=== PATIENT | male | born 1970 | race Caucasian/White ===

== ENCOUNTER 2017-07-13 13:25 | Emergency (ER) | payer SELFPAY ==
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
--- NOTE | 2017-07-13 14:55 | RAD ---
INDICATION: Trauma, right-sided jaw pain. COMPARISON: There are no prior studies available for comparison. TECHNIQUE: Contiguous axial sections of the axial images of the facial bones were obtained and reconstructed in the coronal and sagittal planes. FINDINGS: The borja of the orbits and maxillary sinuses appear intact. The zygomatic arches appear intact. There is no evidence for a fracture of the mandible. The nasal bones appear intact. There is moderate S-shaped deviation of the nasal septum which is convex toward the right along its anterior portion and toward the left along its posterior portion. The pterygoid plates appear intact. There is a small nodular area present along the lateral wall of the left maxillary sinus measuring 1.2 cm in size most consistent with a mucous retention cyst or polyp. There is minimal mucosal thickening present bilaterally within the maxillary sinuses. The paranasal sinuses and mastoid air cells otherwise appear clear. IMPRESSION: NO EVIDENCE OF FRACTURE.
--- NOTE | 2017-07-13 15:16 | RAD ---
INDICATION: 2. No evidence for fracture or subluxation. COMPARISON: There are no prior studies available for comparison. TECHNIQUE: Contiguous axial sections were obtained from the skull base through the T1 vertebra. Images were reconstructed in the sagittal and coronal planes. FINDINGS: The vertebra are in normal alignment. No prevertebral soft tissue swelling or fracture is seen. At the C2-C3 level there is mild posterior uncinate process spurring. No significant spinal canal narrowing is present. There is mild bilateral neural foraminal narrowing. At the C3-C4 level there is mild posterior uncinate process spurring associated with a small central disc protrusion. There is mild spinal canal narrowing and mild bilateral neural foraminal narrowing. At the C4-C5 level there is mild posterior uncinate process spurring. No significant spinal canal narrowing is present. There is mild neural foraminal narrowing on the left side. At C5-C6 level no significant spinal canal or neural foraminal narrowing is seen. At the C6-C7 level there is mild posterior uncinate process spurring. No significant spinal canal or neural foraminal narrowing is seen. IMPRESSION: 1. NO EVIDENCE FOR FRACTURE OR SUBLUXATION. 2. MILD CERVICAL SPONDYLOSIS.
== END 2017-07-13 15:50 | disposition home or self-care (01) ==
LOC: UCEAST 13:25
DX: R68.84 Jaw pain (principal); M54.2 Cervicalgia
CPT/HCPCS: 70486; 72125; 99212; G0463

== ENCOUNTER 2019-07-10 08:10 | Observation (INO) | payer BC ==
--- NOTE | 2019-07-10 08:28 | ED ---
HPI Chest Pain - HPI Summary HPI Summary: This pt is a 49 y/o male presenting to [facility] c/o gradual onset of chest pain at 0700 today. Pt reports he was heading to work this morning when he began to feel chest pain. He works as a teacher in a school. He describes chest pain as radiating to bilateral neck and with left arm "twitching." He states he began to sweat profusely at the time during onset of his pain. Pt also notes SOB "feeling restricted" and nausea. Denies abd pain. Currently pt notes his chest pain is less in severity now and his breathing is "ok" but feels more laborious to fill his lungs. Pt reports he has felt chest pain in the past and notes today his chest pain is similar to prior episodes but is more severe today. He states a milder episode of chest pain happened right high school mathematics teacher began, but believes it might have been secondary to anxiety although he does not have hx of anxiety or treatment for anxiety. He admits to smoking cigarettes once in a while (a "few packs this year") and occasional marijuana. Denies cocaine or heroin use. PMHx chronic pain after T7 injury for which he uses marijuana for the pain, hypercholesterolemia (not currently being treated). Pt reports he was in a car 6 hours yesterday roundtrip but also went hiking. He denies any chest pain or SOB while he was hiking, but reports he had acute on chronic back pain. Denies hx of HTN, DM, cardiac hx, respiratory hx. He denies FHx of ID at a young age. Allergic to Hepatitis B vaccine. - History of Current Complaint Chief Complaint: EDChestPainROMI Time Seen by Provider: 07/10/19 08:16 Hx Obtained From: Patient Onset/Duration: Started Hours Ago, Still Present Timing: Lasting Hours Current Severity: Moderate Pain Intensity: 6 Pain Scale Used: 0-10 Numeric Chest Pain Location: Mid Sternal Chest Pain Radiates: Yes Chest Pain Radiates To:: Neck - bilateral Aggravating Factor(s): Nothing Alleviating Factor(s): Nothing Associated Signs and Symptoms: Positive: Chest Pain, Shortness of Breath, Diaphoresis, Nausea. Negative: Fever, Abdominal Pain - Allergy/Home Medications Allergies/Adverse Reactions: Allergies Allergy/AdvReac Type Severity Reaction Status Date / Time hepatitis B virus vaccine Allergy Fever Verified 07/10/19 09:42 Home Medications: Home Medications NK [No Home Medications Reported] 07/10/19 [History Confirmed 07/10/19] PMH/Surg Hx/FS Hx/Imm Hx Endocrine/Hematology History: Denies: Hx Diabetes, Hx Thyroid Disease Cardiovascular History: Reports: Hx Hypercholesterolemia Denies: Hx Hypertension Respiratory History: Denies: Hx Chronic Obstructive Pulmonary Disease (COPD) Infectious Disease History: No Infectious Disease History: Denies: Hx Hepatitis, History Other Infectious Disease, Traveled Outside the [place] in Last 30 Days - Family History Known Family History: Negative: Cardiac Disease - Denies ID at a young age - Social History Alcohol Use: Occasionally Substance Use Type: Reports: Marijuana Smoking Status (MU): Current Some Day Smoker Review of Systems Positive: Skin Diaphoresis. Negative: Fever Positive: Chest Pain Positive: Shortness Of Breath Positive: Nausea. Negative: Abdominal Pain All Other Systems Reviewed And Are Negative: Yes Physical Exam - Summary Physical Exam Summary: Constitutional: Well-developed, Obese, Alert. (-) Distressed Skin: Warm, Dry HENT: Normocephalic; Atraumatic Eyes: Conjunctiva normal Neck: Musculoskeletal ROM normal neck. (-) JVD, (-) Stridor, (-) Tracheal deviation Cardio: Rhythm regular, rate normal, Heart sounds normal; Intact distal pulses; The pedal pulses are 2+ and symmetric. Radial pulses are 2+ and symmetric. Pulmonary/Chest wall: Effort normal. (-) Respiratory distress, (-) Wheezes, (-) Rales Abd: Soft, (-) tenderness, (-) Distension, (-) Guarding, (-) Rebound Musculoskeletal: (-) Edema Neuro: Alert, Oriented x3 Psych: Mood and affect Normal Triage Information Reviewed: Yes Vital Signs On Initial Exam: Initial Vitals Temp Pulse Resp BP Pulse Ox 96.6 F 62 18 121/63 96 07/10/19 08:18 07/10/19 08:18 07/10/19 08:18 07/10/19 08:18 07/10/19 08:18 Vital Signs Reviewed: Yes Procedures - Sedation Patient Received Moderate/Deep Sedation with Procedure: No Diagnostics - Vital Signs Vital Signs Temp Pulse Resp BP Pulse Ox 07/10/19 08:18 96.6 F 62 18 121/63 96 - Laboratory Result Diagrams: 07/10/19 08:20 07/10/19 08:20 Lab Statement: Any lab studies that have been ordered have been reviewed, and results considered in the medical decision making process. - Radiology Chest XR Radiology Interpretation Completed By: ED Physician Summary of Radiographic Findings: Normal XR. Suboptimal because inspiratory film but no consolidation. - EKG 08:11 Cardiac Rate: Bradycardia - at 57 bpm EKG Rhythm: Sinus Bradycardia EKG Comparison: Other - No prior. Summary of EKG Findings: An EKG at 08:11 reveals sinus bradycardia at 57 bpm, No STEMI. Inferior Q-waves. No prior for comparison. Re-Evaluation - Re-Evaluation First Eval Re-Evaluation Time: 10:08 Comment: Work up for chest pain is negative. HEART score is 5. Pt was offered admission and he agrees to admission. Chest Pain Course/Dx - Course Assessment/Plan: Pt is a 49 y/o male, hx of hypercholesterolemia, presenting to [facility] c/o gradual onset of chest pain at 0700 today. Pt reports he was heading to work this morning when he began to feel chest pain. He describes chest pain as radiating to bilateral neck and with left arm "twitching." He states he began to sweat profusely at the time during onset of his pain. Pt also notes SOB "feeling restricted" and nausea. Hx of smoking cigarettes and marijuana use. Chest XR shows normal XR. Suboptimal because inspiratory film but no consolidation. An EKG at 08:11 reveals sinus bradycardia at 57 bpm, No STEMI. Inferior Q-waves. No prior EKG for comparison. In the ED course pt received aspirin. Work up for chest pain is negative but HEART score of 5. Risk factors include obesity, hx of hypercholesterolemia, drug and tobacco use, EKG changes. Discussed pt's case with Dr. Singh, hospitalist, who accepted the pt for admission. Pt agrees with admission. - Diagnoses Provider Diagnoses: Chest pain - Provider Notifications Discussed Care Of Patient With: Mariana Singh - hospitalist Time Discussed With Above Provider: 10:13 Instructed by Provider To: Admit As Inpatient Discharge ED - Sign-Out/Discharge Documenting (check all that apply): Patient Departure - Admit to [facility] Patient Received Moderate/Deep Sedation with Procedure: No - Discharge Plan Condition: Stable Disposition: ADMITTED TO [facility] - Billing Disposition and Condition Condition: STABLE Disposition: Admitted to [facility] - Attestation Statements Document Initiated by Scribe: Yes Documenting Scribe: Noelle Pradhan Provider For Whom Ryanibe is Documenting (Include Credential): Amadeo Srinivasan MD Scribe Attestation: I, Noelle Pradhan, scribed for Amadeo Srinivasan MD on 07/10/19 at 1907. Scribe Documentation Reviewed: Yes Provider Attestation: The documentation as recorded by the jesuseNoelle accurately reflects the service I personally performed and the decisions made by me, Amadeo Srinivasan MD Status of Scribe Document: Viewed
[2019-07-10 08:29] LABS: ABS Eosinophils 0.2 10^3/ul (0-0.6); ABS Lymphocytes 1.2 10^3/ul (1.0-4.8); ABS Monocytes 0.6 10^3/ul (0-0.8); ABS Neutrophils 3.3 10^3/ul (1.5-7.7); Eosinophil % 3.1 %; Hematocrit 41 % (42-52); Lymphocyte % 22.1 %; Mean Corpuscular HGB Conc 34 g/dL (31-36); Mean Corpuscular Hemoglobin 29 pg (27-31); Mean Corpuscular Volume 85 fL (80-94); Mean Platelet Volume 7.4 fL (7.4-10.4); Platelet Count 236 10^3/uL (150-450); Red Blood Count 4.79 10^6 /uL (4.18-5.48); Red Cell Distribution Width 14 % (10-15); White Blood Count 5.2 10^3/uL (3.5-10.8)
[2019-07-10 08:35] LABS: INR 0.93 (0.82-1.09)
[2019-07-10] MEDS ORDERED: Aspirin 81 mg CHEW TAB* 81 MG TAB.CHEW PO ONE (08:41)
[2019-07-10 08:46] LABS: Albumin 3.9 g/dL (3.2-5.2); Albumin/Globulin Ratio 1.4 (1-3); BUN/Creatinine Ratio 22.4 (8-20); Calcium 8.9 mg/dL (8.6-10.3); EGFR Non-African American 109.9 (>60); Globulin 2.7 g/dL (2-4); Potassium 3.8 mmol/L (3.5-5.0); Total Bilirubin 0.4 mg/dL (0.2-1.0); Total Protein 6.6 g/dL (6.4-8.9)
[2019-07-10] MEDS ORDERED: Nitroglycerin TAB 0.4 MG* 0.4 MG TAB SL PRN (11:50)
[2019-07-10] MEDS ORDERED: Morphine INJ* 2 MG/ML 1 ML SYRINGE (TWO MG - NEW SYRINGE VERSION) IV PRN (11:52)
[2019-07-10] MEDS ORDERED: Ondansetron INJ* 2 MG/ML VIAL IV PRN (12:03)
[2019-07-10] MEDS ORDERED: Acetaminophen TAB* 325 MG PO PRN (12:03)
[2019-07-10 12:19] LABS: HDL Cholesterol 44.2 mg/dL
--- NOTE | 2019-07-10 13:53 | HP ---
CC: Dr. Oliveros * DATE OF ADMISSION: 07/10/2019. PRIMARY CARE PHYSICIAN: Dr. Oliveros. CHIEF COMPLAINT: Chest pain. HISTORY OF PRESENT ILLNESS: Mr. Trotter is a 49-year-old male who has a history of chronic back pain and hypercholesterolemia, currently not under treatment who was on his way to work via the [employer] bus when he began to develop severe chest tightness. The patient states that this was approximately 7:00 a.m. He describes the chest pain as being a both tight and pressure-like sensation. He states it felt as is somebody was sitting on his chest. There was also a component of burning in the chest. He states that the patient radiated up into his neck. He states he felt very uncomfortable and almost restless in nature. He then began to develop very profuse sweating. He, in fact, moved seats so that he could be next to the window and get some air on him. 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 The patient also noted that there was a metallic taste in his mouth prior to getting off the bus. The patient states that he had a terrible nights sleep last night. He did state that he felt more anxious on the morning of presentation than he typically does. His also noted that he was more anxious, but states that this will happen from time to time. The patient states that he has never had pain in the chest this bad before. He does tell me that he has had intermittent episodes of chest discomfort similar to this in the past, but it has been much less severe. He describes his pain as being present from greater than one hour, though, in fact, he tells me that the pain is still present at this point, though much less severe than it was at its maximum. The patient denies any history of DVT or PE. He denies any history of lower extremity swelling. He was in the car for [id number] hours this past Tuesday riding out to [place] [facility]. The patient denies any significant shortness of breath, though he does state that it felt somewhat difficult to breath while the pain was at its most severe. PAST MEDICAL HISTORY: Chronic back pain. PAST SURGICAL HISTORY: Ganglion cyst removal of the right foot times two. MEDICATIONS: Medical marijuana. ALLERGIES: HEPATITIS B VACCINE. FAMILY HISTORY: Mom is living, she is 79 and healthy. Dad at the age of 88 from assisted suicide. SOCIAL HISTORY: The patient smokes approximately three cigarettes per day. He has smoked off and on for years, at times more than others. He drinks a few alcoholic beverages weekly. He is an parts washer. He is . He has three biological children and one adopted child. His will be his healthcare proxy. REVIEW OF SYSTEMS: A complete 11 system review of systems was obtained. Pertinent positives and negatives are as HPI and otherwise negative. PHYSICAL EXAMINATION GENERAL: The patient is a well-developed, obese, middle-aged male sitting in a stretcher, appearing to be somewhat uncomfortable, but in no acute distress. VITAL SIGNS: Blood pressure 121/77, pulse 49, respirations 13, temperature 96.6 , O2 sat 95 percent on room air. HEENT: Pupils are equal and round. Extraocular muscles are intact. Oropharynx is clear. Oral mucosa is moist. There is no submandibular, cervical , or supraclavicular adenopathy. Thyroid is not enlarged. No thyroid nodules are noted. CARDIAC: Normal S1, S2. Regular rate and rhythm. I do not appreciate any murmurs. There is trace bilateral lower extremity pitting edema. PULMONARY: Lungs are clear to auscultation bilaterally. ABDOMEN: Bowel sounds are present. Abdomen is soft, nontender, nondistended. MUSCULOSKELETAL: There is no cyanosis or clubbing of the digits. There is full active range of motion of all four extremities. SKIN: Warm and dry. There are no rashes. NEUROLOGIC: Cranial nerves II through XII are grossly intact. Sensation is intact to light touch throughout. Strength is 5/5 and symmetric in both upper and lower extremities bilaterally. PSYCH: The patient is alert. He is oriented times three. Affect appears appropriate. LABORATORY DATA/DIAGNOSTIC STUDIES: WBC 5.2, hemoglobin 14.0, hematocrit 41, platelets 236; INR 0.93; sodium 138, potassium 3.8, chloride 107, CO2 26, BUN 17 , creatinine 0.76, glucose 133, calcium 8,9, bilirubin 0.4, AST 20, ALT 29, alk phos 121, troponin 0, albumin 3.9. Chest x-ray: No acute cardiopulmonary disease process by radiograph. EKG reveals sinus bradycardia with slight ST elevation in the inferior leads, possibly consistent with early repolarization. ASSESSMENT AND PLAN: Mr. Trotter is a 49-year-old male with a history of possible hypercholesterolemia who presented to the emergency room with sudden onset of severe chest tightness and pressure with associated diaphoresis, nausea , and shortness of breath. 1. Chest pain: The patient will be admitted to rule out acute coronary syndrome. I am very concerned about his story though, he was at rest while this occurred. I reviewed with both the patient and his possible differential diagnosis which could include pulmonary embolism, a GI source, a musculoskeletal source. The patient is agreeable to being admitted under observation status to be ruled out for an acute coronary syndrome and undergo exercise nuclear stress test tomorrow. The patient has been instructed that he should inform nursing staff if there are any changes in his symptoms. I am going to have nitroglycerin administered to see if it makes a difference in his discomfort. He will also have prn Morphine available for pain. I have added a D-dimer to labs obtained in the ER. 2. Hypercholesterolemia: I have added on a lipid profile. We will await results of this. 3. Chronic back pain: The patient will not be allowed to utilize his medical marijuana while hospitalized. He will have prn Tylenol available. 4. DVT prophylaxis: According to the Adult Thrombosis Prophylaxis Risk Factor Assessment Guide, the patient has a total risk factor score of 3 making his high risk. Lovenox 40 mg subcutaneous daily will be utilized as DVT prophylaxis. CODE STATUS: Full. TIME SPENT: Fifty minutes were spent admitting this patient. [id number]/[facility] #: [id number] JIA
[2019-07-10] MEDS ORDERED: Enoxaparin(*) 40 MG/0.4 ML SYR SUBCUT SCH (21:00)
[2019-07-11 08:52] VITALS: BP 105/64
--- NOTE | 2019-07-12 22:27 | DS ---
CC: Dr. Oliveros * DISCHARGE SUMMARY: DATE OF ADMISSION: 07/10/19 DATE OF DISCHARGE: 07/11/19 PRIMARY CARE PROVIDER: Dr. Oliveros. MY ATTENDING WHILE IN THE HOSPITAL: Dr. Noelle Vázquez.* (DICTATED BY NEVIN WRIGHT) PRIMARY DISCHARGE DIAGNOSIS: Chest pain. SECONDARY DISCHARGE DIAGNOSIS: Chronic back pain. STUDIES DONE WHILE IN THE HOSPITAL: EKG shows intraventricular conduction delay , possible borderline ST elevation only in lead III, likely related to intraventricular conduction delay consistent with multiple EKGs. Nuclear medicine scan read as low risk diffusion, normal EF. MEDICATIONS AT DISCHARGE: Medical marijuana. New medications at discharge: None. Medications discontinued at discharge: None. HOSPITAL COURSE: This is a brief summary of the patient's presentation. For more details, please see the history and physical by Dr. Kelsi Valles on 07/10. In brief, the patient is a 49-year-old male with past medical history significant for the above, presented to the emergency department with approximately 1 hour of burning, tightness, and pressure in his chest with diaphoresis and shortness of breath. The patient has been having issues with significant anxiety recently related to his pain and his job. The patient came in to the emergency department, had negative DVT, 3 negative troponins. EKG read as above with no obvious ischemic changes. The patient was admitted to the hospital. The patient was given 1 nitroglycerin and his pain resolved. The patient had a stress test, which was negative as above. The patient had a lipid profile, which showed an LDL of 86. The patient did not have a hemoglobin A1c and should follow up this with primary care provider. The patient had no recurrent chest pain while in the hospital. The patient had no chest pain during the stress test. The patient was stable and amenable for discharge on 07/12/19 to follow up with his primary care provider. PHYSICAL EXAMINATION ON THE DAY OF DISCHARGE: The patient is a 49-year-old male who appears stated age and sitting comfortably in the bed, in no acute distress. Vital Signs: At the time of discharge, temperature 97.2, pulse rate 50, respiratory rate 16, oxygen saturation 97% on room air, blood pressure 105/ 64. HEENT: Head: Normocephalic, atraumatic. Sclerae anicteric. No conjunctival injection. Nasal mucosa moist. Oral mucosa moist. No pharyngeal erythema, discharge, or exudate. Neck: Supple, nontender. No lymphadenopathy. No carotid bruits auscultated. No JVD. Cardiac: Regular rate and rhythm. No clicks, murmurs, gallops, or rubs. Pulses are 2+ in the bilateral dorsalis pedis, posterior tibialis, and radial areas. Respiratory: Clear to auscultation bilaterally. No wheezes, rales, or rhonchi. Good air exchange bilaterally. Abdomen: Soft, nontender, nondistended. Bowel sounds present and normoactive in all 4 quadrants. No hepatosplenomegaly. No abdominal bruits auscultated. No hepatojugular reflux. Genitourinary: No suprapubic or CVA tenderness. Skin: Clean, dry, and intact. No rash. Neuro: Cranial nerves II through XII intact. No focal deficits. Alert and oriented x3. Psychiatric: Pleasant and cooperative. DISCHARGE PLAN BY PROBLEM: 1. Chest pain: Differential for patient's chest pain is still significant including musculoskeletal, GI, or cardiac causes, looks likely represents unstable angina given his negative stress test and relative lack of risk factors. The patient and his family feel like there is a large component of anxiety related to his symptoms. The patient should follow up with his primary care provider for pharmacologic and nonpharmacologic methods for controlling his anxiety. These were offered while in the hospital, but he preferred to talk about this with his primary care provider. The patient to return to the hospital for alarming symptoms such as recurrent chest pain, passing out, or severe shortness of breath. The patient was not started on aspirin or a statin while in the hospital given their limited utility and his low risk nature. 2. Chronic back pain: Continue the patient's medical marijuana. The patient should continue with nonpharmacologic methods for controlling his pain. DISPOSITION: Home. CONDITION: Stable. TIME SPENT: Approximately 60 minutes were spent on the discharge of this patient, 30 of which was spent [id number] with the patient obtaining history and physical and discussing treatment plan. NEVIN WRIGHT [id number]/[facility] #: [id number] JIA
== END 2019-07-11 14:55 | disposition home or self-care (01) ==
LOC: ED 08:10 → MEDTELE 11:50
PROVIDERS: ADMIT Hospitalist; ATTEND Hospitalist
DX: R07.9 Chest pain, unspecified (principal); M54.9 Dorsalgia, unspecified; G89.29 Other chronic pain; E78.00 Pure hypercholesterolemia, unspecified
CPT/HCPCS: 36415; 71046; 78452; 80053; 80061; 84484; 85025; 85379; 85610; 93005; 93017; 99284; A9270-GY; A9502; G0378

== ENCOUNTER 2023-02-22 06:31 | Observation (INO) ==
[~2023-02-22 06:31] MED LIST: Buffered Lidocaine 1% SYRIN 1 ml INTRADERM ONE; Lactated Ringers 1000 ml BAG 1,000 ML IV SCH; Naloxone 0.4 mg VIAL 0.4 mg/ml 1 ml VIAL IV PRN; Ondansetron 4 mg VIAL 2 MG/ML 2 ml VIAL IV PRN; Tranexamic Acid 1,000 MG/10 ML 1,000 MG in NS 0.9% 50 ML 50 ML IV SCH; fentaNYL 100 mcg/2 ml 50 MCG/ML VIAL IV PRN; oxyCODONE/Acetamin 5/325 mg TAB PO PRN
[2023-02-22] MEDS ORDERED: Lidocaine 2% PF 5 ML VIAL ONE (06:47)
[2023-02-22] MEDS ORDERED: Propofol 10 MG/ML 20 ML BTL ONE ×4 (06:47→11:53)
[2023-02-22] MEDS ORDERED: Sevoflurane BOTTLE ONE (06:48)
[2023-02-22] MEDS ORDERED: Phenylephrine IV 10 MG/ML 1 ml VIAL ONE (06:58)
[2023-02-22] MEDS ORDERED: fentaNYL 250 mcg/5 ml 50 MCG/ML 5 ml VIAL (250 MCG) ONE (07:03)
[2023-02-22] MEDS ORDERED: Ketamine HCL 50 mg/ml 10 ml VIAL (500 MG) ONE ×2 (07:03→10:21)
[2023-02-22] MEDS ORDERED: Midazolam 5 mg/5 ml VIAL 1 mg/ml 5 ml VIAL (5 mg) ONE (07:03)
[2023-02-22] MEDS ORDERED: Rocuronium 50 mg VIAL 10 mg/ml 5 ml VIAL (50 mg) ONE ×2 (07:05→10:21)
[2023-02-22] MEDS ORDERED: ceFAZolin 2 GM in NS PREMIX 2 GM/100 ML BAG IVPB ONE (07:41)
[2023-02-22 07:44] LABS: Rapid COVID-19 Molecular Undetected (Undetected)
[2023-02-22] MEDS ORDERED: ceFAZolin 1 GM in Dextrose 1 GM/50 ML BAG ONE (08:00)
[2023-02-22] MEDS ORDERED: ROPIVACAINE 5 MG/ML 30 ML BTL (0.5%) ONE (08:01)
[2023-02-22] MEDS ORDERED: Morphine 2 MG/ML SYRINGE IV PRN (08:25)
[2023-02-22] MEDS ORDERED: Lactulose 30 ml UDC PO PRN (08:25)
[2023-02-22] MEDS ORDERED: Ondansetron ODT 4 mg TAB 4 MG TAB PO PRN (08:25)
[2023-02-22] MEDS ORDERED: Ondansetron 4 mg VIAL 2 MG/ML 2 ml VIAL IV PRN (08:25)
[2023-02-22] MEDS ORDERED: Magnesium Hydroxide LIQ 30 ML UDC PO PRN (08:25)
[2023-02-22] MEDS ORDERED: ceFAZolin 1 GM ADVAN 1 GM in NS 0.9% 50 ML 50 ML IVPB SCH (09:00)
[2023-02-22] MEDS ORDERED: Sterile Water for Inj 10 ML ONE (09:59)
[2023-02-22] MEDS ORDERED: Glycopyrrolate IV 0.2 MG/ML 1 ML VIAL ONE (10:03)
[2023-02-22] MEDS ORDERED: Acetaminophen IV 1 GM/100ML 0 MG/0 ML BAG IV ONE (10:55)
[2023-02-22] MEDS ORDERED: Ondansetron 4 mg VIAL 2 MG/ML 2 ml VIAL ONE ×2 (10:55→13:30)
[2023-02-22] MEDS: Magnesium Hydroxide LIQ 30 ML UDC PO SCH ×2 (11:53→20:00)
[2023-02-22] MEDS: Vitamin THERAPEUTIC TAB PO SCH (11:54)
[2023-02-22] MEDS ORDERED: Dexamethasone IV 4 MG/ML VIAL 1 ml VIAL ONE (13:30)
[2023-02-22] MEDS ORDERED: Acetaminophen IV 1 GM/100ML 1,000 MG/100 ML BAG IV ONE (13:30)
[2023-02-22] MEDS: Lactated Ringers 1000 ml BAG 1,000 ML IV SCH (14:20)
[2023-02-22] MEDS: ceFAZolin 1 GM ADVAN 1 GM in NS 0.9% 50 ML 50 ML IVPB SCH (18:29)
[2023-02-23] MEDS: Lactated Ringers 1000 ml BAG 1,000 ML IV SCH (00:39)
[2023-02-23] MEDS: ceFAZolin 1 GM ADVAN 1 GM in NS 0.9% 50 ML 50 ML IVPB SCH ×2 (01:34→08:50)
[2023-02-23 06:24] LABS: Hematocrit 32.1 % (38-53); Hemoglobin 11.3 g/dL (13.2-16.3); Mean Platelet Volume 7.6 fL (7.5-11.2); Platelet Count 203 10^3/uL (150-450)
[2023-02-23 06:38] LABS: Calcium 7.8 mg/dL (8.6-10.3); Creatinine, Serum 0.76 mg/dL (0.67-1.17); Potassium 4.1 mmol/L (3.5-5.0); eGFR CKD-EPI 108.8 (>60)
[2023-02-23] MEDS: Vitamin THERAPEUTIC TAB PO SCH (08:45)
[2023-02-23] MEDS: Magnesium Hydroxide LIQ 30 ML UDC PO SCH (08:45)
[2023-02-23 11:31] VITALS: BP 115/64
== END 2023-02-23 13:03 | disposition home or self-care (01) ==
LOC: AA 06:31 → INTOOBSV 06:31 → SSU 08:26
PROVIDERS: ADMIT Orthopaedic Surgery Adult Reconstructive Orthopaedic Surgery; ATTEND Orthopaedic Surgery Adult Reconstructive Orthopaedic Surgery